=== PATIENT | male | born 1995 | race Caucasian/White ===

== ENCOUNTER 2017-11-17 00:27 | Emergency (ER) | payer BC ==
[2017-11-17] MEDS ORDERED: NS 0.9% 1000 ML* 1,000 ML IV ONE ×2 (00:38→01:10)
[2017-11-17] MEDS ORDERED: Ondansetron ODT TAB* 4 MG PO ONE (00:38)
--- NOTE | 2017-11-17 00:52 | ED ---
Nausea/Vomiting/Diarrhea HPI - HPI Summary HPI Summary: Patient complains of persistent N/V, subjective fever, SOB, cough, sore throat, MORRIS, facial pressure, nasal discharge, diffuse crampy abdominal pain starting last . Patient has tried [id number]-[id number] anti-medic with no relief. States last bowel movement 3 days ago, last urine 2 days ago. States unable to keep fluid or food down. Denies neck stiffness, CP, diarrhea. Medical history is arrhythmia. Patient states he was taking z-heather for sinus infection last week but was unable to complete due to nausea vomiting. - History of Current Complaint Chief Complaint: EDNauseaVomitDiarrh Stated Complaint: VOMITING Time Seen by Provider: 11/17/17 00:36 Hx Obtained From: Patient Onset/Duration: Gradual Onset, Lasting Days Timing: Intermittent Episodes Lasting: Severity Initially: Moderate Severity Currently: Moderate Pain Intensity: 4 Pain Scale Used: 0-10 Numeric Location: Diffuse Character: Cramping Aggravating Factor(s): Food Alleviating Factor(s): Nothing Nausea/Vomiting Presence: Nauseated, Vomiting Diarrhea Presence: No - Allergies/Home Medications Allergies/Adverse Reactions: Allergies Allergy/AdvReac Type Severity Reaction Status Date / Time amoxicillin Allergy Hives Verified 11/17/17 00:30 cephalexin [From Keflex] Allergy Hives Verified 11/17/17 00:30 Cephalosporins Allergy Hives Verified 11/17/17 00:30 Penicillins Allergy Hives Verified 11/17/17 00:30 PMH/Surg Hx/FS Hx/Imm Hx Endocrine/Hematology History: Denies: Hx Anticoagulant Therapy Cardiovascular History: Denies: Hx Cardiac Arrest History: Denies: Hx Chronic Renal Failure Sensory History: Denies: Hx Glaucoma EENT History: Denies: Hx Deafness Neurological History: Denies: Hx CVA Infectious Disease History: No Infectious Disease History: Denies: Traveled Outside the [place] in Last 30 Days - Social History Alcohol Use: Occasionally Substance Use Type: Reports: Marijuana Hx Tobacco Use: No Review of Systems Positive: Fever Eyes: Negative Positive: Sore Throat, Nasal Discharge Cardiovascular: Negative Positive: Shortness Of Breath, Cough Positive: Abdominal Pain, Vomiting, Nausea Genitourinary: Negative Musculoskeletal: Negative Skin: Negative Positive: Headache Psychological: Normal All Other Systems Reviewed And Are Negative: Yes Physical Exam - Summary Physical Exam Summary: Mild discomfort diffusely with palpation of all quadrants of abdomen. Triage Information Reviewed: Yes Vital Signs On Initial Exam: Initial Vitals Temp Pulse Resp BP Pulse Ox 97.6 F 78 20 131/99 100 11/17/17 00:31 11/17/17 00:31 11/17/17 00:31 11/17/17 00:31 11/17/17 00:31 Vital Signs Reviewed: Yes Appearance: Positive: Well-Appearing Skin: Positive: Warm Head/Face: Positive: Normal Head/Face Inspection Eyes: Positive: Normal ENT: Positive: Normal ENT inspection Neck: Positive: Supple Respiratory/Lung Sounds: Positive: Clear to Auscultation Cardiovascular: Positive: Normal Abdomen Description: Positive: Other: Musculoskeletal: Positive: Normal Neurological: Positive: Normal Psychiatric: Positive: Normal AVPU Assessment: Alert - Reynaldo Coma Scale Best Eye Response: 4 - Spontaneous Best Motor Response: 6 - Obeys Commands Best Verbal Response: 5 - Oriented Coma Scale Total: 15 Diagnostics - Vital Signs Vital Signs Temp Pulse Resp BP Pulse Ox 11/17/17 00:31 97.6 F 78 20 131/99 100 - Laboratory Result Diagrams: 11/17/17 00:51 11/17/17 00:51 Lab Statement: Any lab studies that have been ordered have been reviewed, and results considered in the medical decision making process. - Radiology CXR Xray Interpretation: No Acute Changes Radiology Interpretation Completed By: ED Physician Re-Evaluation - Re-Evaluation 1 Re-Evaluation Time: 03:00 Comment: Patient states nausea is under control, he feels much better after 2 L of fluid. Naus/Vom/Diarrhea Course/Dx - Course Course Of Treatment: Patient complains of persistent N/V, subjective fever, SOB , cough, sore throat, MORRIS, facial pressure, nasal discharge, diffuse crampy abdominal pain starting last . Patient has tried ehia-lhx-ddiusii anti- medic with no relief. States last bowel movement 3 days ago, last urine 2 days ago. States unable to keep fluid or food down. Denies neck stiffness, CP, diarrhea. Medical history is arrhythmia. Patient states he was taking z-heather for sinus infection last week but was unable to complete due to nausea vomiting. Mild discomfort diffusely with palpation of all quadrants of abdomen. Vital signs within normal limits and stable. Chest x-ray negative. Patient nausea improved with Reglan and 2 L of fluid. Will provide rx for phenergan. Patient also wanted urine to be tested for GC chlamydia. Patient will be called if urine culture and GC chlamydia results return positive. Patient also complains of trouble sleeping. Rx for Vistaril. Follow-up with primary care. - Differential Dx/Diagnosis Provider Diagnoses: Nausea vomiting Condition At Discharge: Stable Discharge - Sign-Out/Discharge Documenting (check all that apply): Discharge/Admit/Transfer - Discharge Plan Condition: Stable Disposition: HOME Prescriptions: hydrOXYzine pamoate [Vistaril] 50 mg PO DAILY 15 Days #15 capsule Promethazine TAB* [Phenergan TAB*] 25 mg PO Q8H PRN 5 Days #15 tab PRN Reason: Nausea Patient Education Materials: Acute Nausea and Vomiting (ED) Referrals: No Primary Care Phys,NOPCP [Primary Care Provider] - [facility] [Outside] Additional Instructions: Follow-up with primary care. Return to the ED for any new or worsening symptoms - Billing Disposition and Condition Condition: STABLE Disposition: Home
[2017-11-17 01:10] LABS: ABS Basophils 0 10^3/ul (0-0.2); ABS Eosinophils 0 10^3/ul (0-0.6); ABS Lymphocytes 2.5 10^3/ul (1.0-4.8); ABS Monocytes 0.8 10^3/ul (0-0.8); ABS Neutrophils 6.2 10^3/ul (1.5-7.7); ABS Nucleated RBC 0 10^3/ul; Eosinophil % 0 % (0-6); Hematocrit 43 % (42-52); Hemoglobin 15.6 g/dl (14.0-18.0); Mean Corpuscular HGB Conc 36 g/dl (31-36); Mean Corpuscular Hemoglobin 29 pg (27-31); Mean Corpuscular Volume 82 fL (80-94); Mean Platelet Volume 7.4 um3 (7.4-10.4); Nucleated Red Blood Cells % 0; Platelet Count 318 10^3/ul (150-450); Red Cell Distribution Width 13 % (10.5-15); White Blood Count 9.5 10^3/ul (3.5-10.8)
[2017-11-17 01:20] LABS: EGFR Non-African American 81.1 (>60)
[2017-11-17] MEDS ORDERED: Metoclopramide IV* 5 MG/ML 2 ML VIAL IV ONE (01:33)
[2017-11-17] MEDS ORDERED: Potassium Chlor TAB* 20 MEQ TAB.ER PO ONE (01:58)
[2017-11-17] MEDS ORDERED: Ondansetron ODT TAB* 4 MG PO PRN (03:36)
[2017-11-17 03:40] LABS: Urine Appearance Cloudy; Urine Blood Negative (Negative); Urine Color Yellow; Urine Ketones 2+ (Negative); Urine Protein 1+(30 mg/dL) (Negative); Urine Specific Gravity 1.032 (1.010-1.030); Urine Urobilinogen Negative (Negative)
[2017-11-17 03:52] VITALS: BP 134/81
[2017-11-17] MEDS ORDERED: Ondansetron ODT TAB* 4 MG PO SCH (04:00)
--- NOTE | 2017-11-17 07:48 | RAD ---
Indication: Cough, shortness of breath. 2 views of the chest including dual energy PA views demonstrate no mediastinal shift. Heart is of normal size and configuration. Lung nolasco show no pleural fluid, pneumonia or pneumothorax. IMPRESSION: No active cardiopulmonary disease is noted
== END 2017-11-17 03:50 | disposition home or self-care (01) ==
LOC: ED 00:27
DX: R11.2 Nausea with vomiting, unspecified (principal); R50.9 Fever, unspecified; R05 Cough; J02.9 Acute pharyngitis, unspecified; R51 Headache; R10.84 Generalized abdominal pain
CPT/HCPCS: 36415; 71046; 80053; 80307; 81003; 81015; 83605; 83690; 85025; 86703; 87086; 87491; 87591; 87651; 96365; 99283; A9270-GY; J2765

== ENCOUNTER 2018-09-09 10:40 | Emergency (ER) | payer BC ==
[2018-09-09] MEDS ORDERED: NS 0.9% 1000 ML** 1,000 ML IV ONE ×2 (11:24→12:37)
[2018-09-09] MEDS ORDERED: Ondansetron INJ* 2 MG/ML VIAL IV ONE (11:24)
[2018-09-09] MEDS ORDERED: Ketorolac INJ* 30 MG/ML 1 ML VIAL IV PUSH ONE (11:36)
--- NOTE | 2018-09-09 11:36 | ED ---
GI/ HPI - HPI Summary HPI Summary: 23-year-old male presents with nausea and vomiting for the past 3 days. He states he smoked some marijuana a couple days ago. He has a history of this. He had one episode diarrhea. He admits to occasional crampy of upper abdominal pain. No fevers. No chest pain shortness breath or cough. Has a sore throat from vomiting. Has no medical conditions. Hasn't taking anything for her symptoms. - History of Current Complaint Chief Complaint: EDNauseaVomitDiarrh Time Seen by Provider: 09/09/18 11:06 Stated Complaint: VOMITING FOR 3DAYS PER PT Pain Intensity: 3 - Allergy/Home Medications Allergies/Adverse Reactions: Allergies Allergy/AdvReac Type Severity Reaction Status Date / Time amoxicillin Allergy Hives Verified 09/09/18 10:51 cephalexin [From Keflex] Allergy Hives Verified 09/09/18 10:51 Cephalosporins Allergy Hives Verified 09/09/18 10:51 Penicillins Allergy Hives Verified 09/09/18 10:51 PMH/Surg Hx/FS Hx/Imm Hx Endocrine/Hematology History: Denies: Hx Anticoagulant Therapy Cardiovascular History: Denies: Hx Cardiac Arrest History: Denies: Hx Chronic Renal Failure Sensory History: Denies: Hx Glaucoma, Hx Deafness Opthamlomology History: Denies: Hx Glaucoma Neurological History: Denies: Hx CVA Infectious Disease History: No Infectious Disease History: Denies: Traveled Outside the [place] in Last 30 Days - Family History Known Family History: Positive: Non-Contributory - Social History Alcohol Use: None Substance Use Type: Reports: Marijuana Substance Use Comment - Amount & Last Used: multiple times daily Hx Tobacco Use: No Smoking Status (MU): Never Smoked Tobacco Review of Systems Negative: Fever Negative: Chest Pain Negative: Shortness Of Breath Positive: Vomiting, Diarrhea, Nausea All Other Systems Reviewed And Are Negative: Yes Physical Exam Triage Information Reviewed: Yes Vital Signs On Initial Exam: Initial Vitals Temp Pulse Resp BP Pulse Ox 97.9 F 83 16 135/101 99 09/09/18 10:49 09/09/18 10:49 09/09/18 10:49 09/09/18 10:49 09/09/18 10:49 Vital Signs Reviewed: Yes Appearance: Positive: Well-Appearing Skin: Positive: Warm, Dry Head/Face: Positive: Normal Head/Face Inspection Eyes: Positive: Normal, Conjunctiva Clear ENT: Positive: Pharynx normal Respiratory/Lung Sounds: Positive: Clear to Auscultation, Breath Sounds Present Cardiovascular: Positive: Normal, RRR Abdomen Description: Positive: Nontender, Soft Bowel Sounds: Positive: Present Musculoskeletal: Positive: Normal Neurological: Positive: Normal Psychiatric: Positive: Normal Diagnostics - Vital Signs Vital Signs Temp Pulse Resp BP Pulse Ox 09/09/18 10:49 97.9 F 83 16 135/101 99 - Laboratory Result Diagrams: 09/09/18 11:45 09/09/18 11:45 Lab Statement: Any lab studies that have been ordered have been reviewed, and results considered in the medical decision making process. Re-Evaluation - Re-Evaluation First Eval Re-Evaluation Time: 13:32 Change: Improved Comment: feeling better, no longer nauesous GIGU Course/Dx - Course Course Of Treatment: 23-year-old male presents with nausea and vomiting for the past 3 days. He states he smoked some marijuana a couple days ago. He has a history of this. He had one episode diarrhea. He admits to occasional crampy of upper abdominal pain. No fevers. No chest pain shortness breath or cough. Has a sore throat from vomiting. Has no medical conditions. Hasn't taking anything for her symptoms. On exam nontender abdomen. Lungs clear auscultation. wbc 11. sodium low. gave fluids, compazine and zofran and feeling better and wants to go home. discussed should stop smoking marijuana. Gave Zofran to go home with. Told to take every 6 hours as needed. Encourage fluids. Told to establish care with primary. Patient understands and agrees with plan. - Diagnoses Differential Diagnoses - Male: Gastroenteritis (Bacterial), Gastroenteritis ( Viral), Urinary Tract Infection Provider Diagnoses: Vomiting Discharge - Sign-Out/Discharge Documenting (check all that apply): Patient Departure Patient Received Moderate/Deep Sedation with Procedure: No - Discharge Plan Condition: Good Disposition: HOME Prescriptions: Ondansetron ODT TAB* [Zofran 4 MG Odt TAB*] 4 mg PO Q6H PRN #20 tab.odt PRN Reason: Nausea Patient Education Materials: Acute Nausea and Vomiting (ED) Referrals: [facility] [Outside] Additional Instructions: Can take Zofran every 6 hours as needed for nausea Drink small amounts of fluid as tolerated When able to eat follow BRAT diet: Bananas, rice, applesauce, toast Take ibuprofen or Tylenol for pain as needed every 6 hours est care with primary Return to ED if develop any new or worsening symptoms - Billing Disposition and Condition Condition: GOOD Disposition: Home
[2018-09-09 11:59] LABS: ABS Basophils 0 10^3/ul (0-0.2); ABS Eosinophils 0 10^3/ul (0-0.6); ABS Lymphocytes 1.8 10^3/ul (1.0-4.8); ABS Monocytes 0.8 10^3/ul (0-0.8); ABS Neutrophils 8.4 10^3/ul (1.5-7.7); ABS Nucleated RBC 0 10^3/ul; Eosinophil % 0 %; Hematocrit 45 % (36-46); Hemoglobin 15.4 g/dL (14.0-18.0); Lymphocyte % 16.6 %; Mean Corpuscular HGB Conc 34 g/dL (31-36); Mean Corpuscular Hemoglobin 28 pg (27-31); Mean Corpuscular Volume 82 fL (80-94); Mean Platelet Volume 7.5 fL (7.4-10.4); Nucleated Red Blood Cells % 0.1; Platelet Count 350 10^3/uL (150-450); Red Blood Count 5.49 10^6 /uL (4.18-5.48); Red Cell Distribution Width 13 % (10.5-15); White Blood Count 11.1 10^3/uL (3.5-10.8)
[2018-09-09 12:21] LABS: ALT 15 U/L (7-52); AST 16 U/L (13-39); Alkaline Phosphatase 60 U/L (34-104); Anion Gap 13 mmol/L (2-11); BUN/Creatinine Ratio 17.2 (8-20); Blood Urea Nitrogen 17 mg/dL (6-24); CO2 Carbon Dioxide 24 mmol/L (22-32); Chloride 96 mmol/L (101-111); EGFR African American 114.4 (>60); EGFR Non-African American 94.5 (>60); Globulin 2.5 g/dL (2-4); Glucose 106 mg/dL (70-100); Magnesium 2.1 mg/dL (1.9-2.7); Potassium 3.5 mmol/L (3.5-5.0); Sodium 133 mmol/L (135-145); Total Protein 7.5 g/dL (6.4-8.9)
[2018-09-09] MEDS ORDERED: PROCHLORPERAZINE INJ 5 MG/ML 2 ML VIAL IV ONE (12:37)
[2018-09-09 13:48] VITALS: BP 125/75
== END 2018-09-09 13:48 | disposition home or self-care (01) ==
LOC: ED 10:40
DX: R11.10 Vomiting, unspecified (principal); Z88.0 Allergy status to penicillin
CPT/HCPCS: 36415; 80053; 83690; 83735; 85025; 86140; 86308; 96361; 96374; 96375; 99282; J0780; J1885; J2405